=== PATIENT | male | born 1950 | race Caucasian/White ===

== ENCOUNTER 2017-07-17 16:17 | Emergency (ER) | payer OTHER ==
[2017-07-17 16:32] VITALS: BP 138/74
[2017-07-17] MEDS ORDERED: Ibuprofen TAB* 600 MG PO ONE (16:47)
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
--- NOTE | 2017-07-17 17:11 | RAD ---
INDICATION: Cough, fever. History of pneumonia with pleurisy 2 years ago. History of pulmonary sarcoidosis. COMPARISON: May 08, 2015 TECHNIQUE: Dual energy PA and routine lateral views of the chest were obtained. REPORT: Mild prominence of the interstitial markings without significant change. Near complete resolution of previous linear opacities at the LEFT lower lung zone. No alveolar consolidation concerning for pneumonia. Negative for suspicious focal pulmonary lesions. Negative for pleural effusion or pneumothorax. The heart, pulmonary vasculature, and mediastinal contours are unremarkable. IMPRESSION: No evidence for acute intrathoracic disease.
[2017-07-17] MEDS ORDERED: Oseltamivir SUSP 75 MG dose* 75 MG/12.5 ML ORAL.SYRIN PO ONE (17:25)
[2017-07-17] MEDS ORDERED: Oseltamivir SUSP* 6 MG/ML ORAL.SOLN **STOCK BOTTLE ONE (17:31)
== END 2017-07-17 17:36 | disposition home or self-care (01) ==
LOC: UCEAST 16:17
DX: J10.1 Influenza due to other identified influenza virus with other respiratory manifestations (principal); D86.0 Sarcoidosis of lung; Z88.0 Allergy status to penicillin; Z88.8 Allergy status to other drugs, medicaments and biological substances; Z87.891 Personal history of nicotine dependence
CPT/HCPCS: 71046; 87502; 99212; A9270-GY; G0463; G9019

== ENCOUNTER 2019-01-22 08:19 | Emergency (ER) | payer MEDICARE ==
[2019-01-22 08:36] VITALS: BP 108/58
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
== END 2019-01-22 09:40 | disposition home or self-care (01) ==
LOC: UCEAST 08:19
DX: S63.509A Unspecified sprain of unspecified wrist, initial encounter (principal); K51.90 Ulcerative colitis, unspecified, without complications; D86.9 Sarcoidosis, unspecified; Z88.8 Allergy status to other drugs, medicaments and biological substances; Z88.0 Allergy status to penicillin; Z79.899 Other long term (current) drug therapy; Z87.891 Personal history of nicotine dependence; V87.8XXA Person injured in other specified noncollision transport accidents involving motor vehicle (traffic), initial encounter; Y92.9 Unspecified place or not applicable
CPT/HCPCS: 99213; G0463